=== PATIENT | male | born 1970 | race Caucasian/White ===

== ENCOUNTER 2019-10-08 10:56 | Emergency (ER) | payer OTHER ==
[2019-10-08 11:00] VITALS: BP 136/85; PULSE 69; TEMP 98.1; BMI 29.2
[2019-10-08] MEDS ORDERED: ACETAMINOPHEN 1000 MG/100 ML VIAL (NON FORMULARY) IVPB ONE (11:18)
--- NOTE | 2019-10-08 11:20 | PDOC ---
History of Present Illness - General Chief Complaint: Pain, Acute Stated Complaint: ABD PAIN Time Seen by Provider: 10/08/19 11:01 History Source: Patient - History of Present Illness Abdominal Pain Onset Location: reports: [facility] Past History - Past Medical History Allergies/Adverse Reactions: Allergies Allergy/AdvReac Type Severity Reaction Status Date / Time aspirin Allergy Swelling Verified 10/08/19 11:00 Home Medications: Ambulatory Orders Allopurinol [Zyloprim] 300 mg PO DAILY 02/02/13 Amlodipine Besylate 10 mg PO DAILY 10/08/19 Losartan Potassium 100 mg PO DAILY 10/08/19 Rosuvastatin Calcium 10 mg PO DAILY 10/08/19 COPD: No GI Disorders: Yes (DIVERTICULITIS) HTN: Yes - Psycho Social/Smoking Cessation Hx Smoking Status: No Smoking History: Never smoked Number of Cigarettes Smoked Daily: 0 Hx Alcohol Use: No Drug/Substance Use Hx: No Review of Systems - Review of Systems Constitutional: No: Chills, Fever ABD/GI: Yes: Abdominal cramping. No: Diarrhea, Nausea, Vomiting : No: Burning, Dysuria, Flank Pain, Hematuria *Physical Exam - Vital Signs Last Vital Signs Temp Pulse Resp BP Pulse Ox 98.1 F 69 16 136/85 96 10/08/19 10:58 10/08/19 10:58 10/08/19 10:58 10/08/19 10:58 10/08/19 10:58 - Physical Exam General Appearance: Yes: Appropriately Dressed. No: Apparent Distress HEENT: positive: Normal Voice Neck: positive: Supple Respiratory/Chest: negative: Respiratory Distress Gastrointestinal/Abdominal: positive: Normal Bowel Sounds, Tender (to LLQ), Soft. negative: Distended, Guarding, Rebound Musculoskeletal: negative: CVA Tenderness Integumentary: positive: Dry, Warm Neurologic: positive: Fully Oriented, Alert, Normal Mood/Affect ED Treatment Course - LABORATORY CBC & Chemistry Diagram: 10/08/19 10:25 10/08/19 10:25 - RADIOLOGY Radiology Studies Ordered: Category Date Time Status ABDOMEN & PELVIS CT WITH CONTR [CT] Stat CT Scan 10/08/19 11:16 Ordered Medical Decision Making - Medical Decision Making 10/08/19 11:18 48-year-old male, history of hypertension, hyperlipidemia, diverticulitis, medically managed here with worsening lower abdominal pain x1 week. Seen by his PMD and started on Augmentin but states pain persist. Had 1 episode of constipation last night but now with some mild diarrhea. No bright red blood per rectum fever or chills. States he is scheduled for CT tomorrow but came in today because pain has worsened. patient states he had a sigmoidoscopy several years ago for bright red blood per rectum which has since resolved see exam R/o recurrent diverticulitis On augmentin x several days by his PMD Stable w/ ttp to [facility] on exam -pain control -labs -CT a/p 10/08/19 14:[address] unremarkable. No sig at this time per reassessment. I attempted to contact patient's PMD to discuss disposition but got answering machine. Patient stable for discharge to continue meds and discuss further recommendations/evaluation with his PMD Discharge - Discharge Information Problems reviewed: Yes Clinical Impression/Diagnosis: Lower abdominal pain Condition: Good Disposition: HOME - Follow up/Referral Referrals: Caleb Rose MD [Primary Care Provider] - - Patient Discharge Instructions Patient Printed Discharge Instructions: DI for Abdominal Pain-Adult Additional Instructions: The cause of yourr symptoms are unclear at this time as your labs and CAT scan were normal Please continue your antibiotics and take Motrin or Tylenol for pain until you can discuss further recommendations with your primary care physician Feel free to have your sales service professional call me at [phone] (IONA Duran) until 7pm tonight - Post Discharge Activity
[2019-10-08] MEDS ORDERED: ACETAMINOPHEN INJECTION 100 ML IVPB ONE (11:24)
[2019-10-08 11:50] LABS: PH,URINE 6.5 (5.0-8.0); URINE APPEARANCE CLEAR; URINE BILIRUBIN NEGATIVE (NEGATIVE); URINE COLOR YELLOW; URINE GLUCOSE (UA) NEGATIVE (NEGATIVE); URINE KETONE NEGATIVE (NEGATIVE); URINE LEUK ESTERASE NEGATIVE (NEGATIVE); URINE NITRITE NEGATIVE (NEGATIVE); URINE PROTEIN NEGATIVE (NEGATIVE); URINE UROBILINOGEN 0.2 mg/dL (0.2-1.0)
[2019-10-08 11:51] LABS: BASO % 2.2 % (0-2.0); EOS % 4.8 % (0-4.5); HEMOGLOBIN 13.9 GM/dL (11.7-16.9); LYMPH % 32.1 % (8-40); MCH 31.8 pg (25.7-33.7); MCHC 34.7 g/dl (32.0-35.9); MEAN CELL VOLUME 91.6 fl (80-96); MEAN PLT VOLUME 6.7 fl (7.5-11.1); MONO % 7.6 % (3.8-10.2); NEUT % 53.3 % (42.8-82.8); PLATELET COUNT 214 K/MM3 (134-434); RBC 4.37 M/mm3 (4.00-5.60); RDW 12.8 % (11.9-15.9); WHITE BLOOD COUNT 4.6 K/mm3 (4.0-10.0)
[2019-10-08 12:23] LABS: ALBUMIN 4.3 g/dl (3.4-5.0); BILIRUBIN,TOTAL 0.7 mg/dL (0.2-1); BLOOD UREA NITROGEN 11.4 mg/dL (7-18); CALCIUM 8.9 mg/dL (8.5-10.1); CREATININE 0.9 mg/dL (0.55-1.3); POTASSIUM 4.1 mmol/L (3.5-5.1); TOT PROT 7.3 g/dl (6.4-8.2)
== END 2019-10-08 15:00 | disposition home or self-care (01) ==
LOC: JER 10:56
PROC: 3E033NZ Introduction of Analgesics, Hypnotics, Sedatives into Peripheral Vein, Percutaneous Approach (ICD-10-PCS; principal; 2019-10-08)
DX: R16.2 Hepatomegaly with splenomegaly, not elsewhere classified (principal); K76.0 Fatty (change of) liver, not elsewhere classified; I10 Essential (primary) hypertension; E78.5 Hyperlipidemia, unspecified; Z87.19 Personal history of other diseases of the digestive system; Z88.6 Allergy status to analgesic agent
CPT/HCPCS: 36415; 74177-TC; 80053; 81003; 85025; 99282-25; J0131

== ENCOUNTER 2022-10-05 05:25 | Day surgery (SDC) | payer BC ==
[2022-10-03 13:57] VITALS: BMI 29.8
[2022-10-05] MEDS ORDERED: KETAMINE HCL 500 MG/10 ML VIAL ONE (07:16)
[2022-10-05 08:46] VITALS: TEMP 98.4
[2022-10-05 09:10] VITALS: PULSE 95; RESP 20
[2022-10-05 10:09] VITALS: BP 140/82
[2022-10-05 10:54] LABS: BASO % 1.4 % (0-2.0); HEMATOCRIT 43.3 % (35.4-49); HEMOGLOBIN 14.4 GM/dL (11.7-16.9); LYMPH % 28.9 % (8-40); MCHC 33.3 g/dl (32.0-35.9); MEAN PLT VOLUME 7.5 fl (7.5-11.1); MONO % 7.7 % (3.8-10.2); PLATELET COUNT 292 10^3/uL (134-434); RBC 4.66 M/mm3 (4.00-5.60); RDW 12.1 % (11.9-15.9); WHITE BLOOD COUNT 4.3 K/mm3 (4.0-10.0)
[2022-10-05 11:12] LABS: ALBUMIN 4.4 g/dl (3.4-5.0); CALCIUM 9.8 mg/dL (8.5-10.1)
[2022-10-05 11:13] LABS: BLOOD UREA NITROGEN 12.9 mg/dL (7-18)
[2022-10-05 11:16] LABS: CREATININE 0.8 mg/dL (0.55-1.3)
[2022-10-05 11:17] LABS: BILIRUBIN,TOTAL 0.9 mg/dL (0.2-1); TOT PROT 7.7 g/dl (6.4-8.2)
== END 2022-10-05 10:05 | disposition home or self-care (01) ==
LOC: JASU-ENDO 05:25
PROVIDERS: ATTEND Internal Medicine Gastroenterology
PROC: 0DBE8ZX Excision of Large Intestine, Via Natural or Artificial Opening Endoscopic, Diagnostic (ICD-10-PCS; 2022-10-05)
PROC: 0DBP8ZX Excision of Rectum, Via Natural or Artificial Opening Endoscopic, Diagnostic (ICD-10-PCS; principal; 2022-10-05 08:00)
DX: Z12.11 Encounter for screening for malignant neoplasm of colon (principal); K62.1 Rectal polyp; K57.30 Diverticulosis of large intestine without perforation or abscess without bleeding; K64.8 Other hemorrhoids
CPT/HCPCS: 36415; 80053; 82378; 85025; 86140; 88305-TC